=== PATIENT | female | born 2000 | race Caucasian/White ===

== ENCOUNTER 2020-10-05 10:58 | Emergency (ER) | payer OTHER ==
[2020-10-05 11:08] VITALS: BP 122/72; TEMP 98.6; BMI 25.6
[2020-10-05 13:22] VITALS: PULSE 97
== END 2020-10-05 13:21 | disposition home or self-care (01) ==
LOC: JERFT 10:58 → JER 10:58 → JERFT 13:21
DX: S93.402A Sprain of unspecified ligament of left ankle, initial encounter (principal)
CPT/HCPCS: 73610-TC-LT-FY; 73630-TC-LT; 99283-25